=== PATIENT | female | born 1970 | race African-American/Black ===

== ENCOUNTER 2023-04-04 12:18 | Outpatient (CLI) | payer OTHER, SELFPAY ==
--- NOTE | ~2023-04-04 | US_ITS ---
EXAMINATION: US pelvic complete DATE: 04/04/2023 13:16 INDICATION: Missing IUD strings TECHNIQUE: Multiple transabdominal and endovaginal sonographic images of the pelvis were obtained. COMPARISON: 03/09/2017 FINDINGS: The uterus measures 8.4 x 5.0 x 5.8 cm. The endometrial complex measures 7 mm. An IUD is in expected position. A 1.2 cm round hypoechoic lesion of the uterine fundus has the appearance of an i ntramural fibroid. The right ovary measures 3.5 x 1.9 x 2.6 cm. The left ovary measures 2.4 x 1.1 x 2 .5 cm. There is normal vascular flow in the ovaries. There is no free fluid in the pelvis. IMPRESSION: 1. IUD in expected position. Reviewed, dictated and finalized at location [facility] [employer]
== END 2023-04-04 12:19 ==
PROVIDERS: PCP Obstetrics & Gynecology Gynecology; Visit Provider Obstetrics & Gynecology Gynecology
DX: Z97.5 Presence of (intrauterine) contraceptive device (principal)
CPT/HCPCS: 76856

== ENCOUNTER 2023-05-31 08:53 | Outpatient (CLI) | payer OTHER, SELFPAY ==
--- NOTE | ~2023-05-31 | DEXA_ITS ---
Bone Density Report Name: MEENAKSHI FERNÁNDEZ Age: 53 Sex: Female Ethnicity: Black Date of : 1970 Indication: postmenopausal; screening for osteoporosis; height loss; Referring Provider: MEREDITH MACIAS Study: Bone densitometry was performed. Exam Date: May 31, 2023 Accession number: [id number] Bone Density: Region BMD T-score Z-score Classification AP Spine (L1-L4) 1.213 1.5 1.5 Normal Femoral Neck (Left) 0.808 -0.4 -0.4 Normal Total Hip (Left) 0.958 0.1 -0.1 Normal Femoral Neck (Right) 0.733 -1.0 -0.9 Normal Total Hip (Right) 0.960 0.1 -0.1 Normal Total Hip Mean 0.959 0.1 -0.1 Normal World Health Organization criteria for BMD impression classify patients as: Normal (T-score at or above -1.0), Osteopenia (T-score between -1.0 and -2.5), or Osteoporosis (T-score at or below -2.5). 10-year Fracture Risk: FRAX not reported because: All T-scores for Spine Total, Hip Total, Femoral Neck at or above -1.0 Clinical Information Provided by Patient: Has used the following medications: Vitamin D, MTV Patient maximum height was 64 No regular weight bearing exercise Does not regularly consume dairy products Drinks caffeinated beverages Onset of menses at age 12 Number of children 1 Impression: The patient has normal bone mass. Discussion: BONE DENSITY IS ABOVE THE MINIMUM DESIRABLE LEVEL AT ALL SKELETAL SITES TESTED. This patient?s bone mineral density is above the minimum desirable level (T-score -1.0 or better) at all sites measured. The patient should follow a healthful lifestyle (good nutrition with adequate calcium and vitamin D, and appropriate weight-bearing exercise). Follow-Up: Consider repeating this study in 5 years or sooner if there is some new clinical indication. Reported by: HELGA on 05/31/2023 9:18:00 AM. Reviewed, dictated and finalized at location AAysha JACKSON
== END 2023-05-31 08:54 ==
LOC: MICIMG 08:55
PROVIDERS: PCP Obstetrics & Gynecology Gynecology; Visit Provider Obstetrics & Gynecology Gynecology
DX: Z13.820 Encounter for screening for osteoporosis (principal); R29.890 Loss of height; Z78.0 Asymptomatic menopausal state
CPT/HCPCS: 77080

== ENCOUNTER 2024-05-14 01:46 | Day surgery (SDC) | payer OTHER, SELFPAY ==
[2024-05-02 10:13] VITALS: BMI 25.2
--- NOTE | 2024-05-02 11:09 | PC.NURSE ---
Report to the Outpatient Waiting Room, entrance under the green pavilion located off [facility], at time __0615AM on date _05/14/24 . Planned Procedure Time: __0815AM .? Time changes happen often and if your time is changed the preop area will call you the afternoon before. - You and your visitor will be asked to self-screen and do not enter if you have any COVID symptoms. Please call surgeon if you need to reschedule. - A mask is optional within the hospital at this time. Patients may have clear liquids (water, carbonated beverages, clear teas, apple juice) until 3 hours prior to surgery with a maximum of 20 ounces. - No food from midnight until time of surgery and no smoking, or chewing tobacco (or any form of nicotine). No chewing gum, candy or mints. - Take only the following medications with a SIP of water on the morning of surgery: _LAMICTAL, ESCITALOPRAM, ABILIFY DO NOT STOP ANY OF YOUR OTHER PRESCRIPTION MEDICATIONS PRIOR TO SURGERY EXCEPT THE FOLLOWING Hold all vitamins and supplements for 3 days per anesthesiologist. Medications to discontinue per physician ___MOUNJARO LAST DOSE 05/03/24,__ MULTIVITAMIN LAST DOSE 05/11/24 Date to take last dose Please no make-up, nail irish, hairspray, perfume, deodorant, or body powder the day of surgery.? No jewelry (including any body piercings) or valuables the day of surgery, leave them at home.? Please take a shower or bath the night before, or the morning of, surgery with an antibacterial soap.? Wear comfortable, loose fitting clothing.? - Jewelry must be removed prior to entering the operating room.? Rings and piercings that are not removed may be cut off. - The hospital will not accept responsibility for valuables.? - Please leave all valuables, including medications, at home the day of surgery. If you are going home after surgery, a licensed semi driver must drive you home.? - NO public transportation without another adult if you receive anesthesia. - We recommend that an adult stay with you for 24 hours following discharge. - We also recommend that you do not drive, make important decision, drink alcoholic beverages, or take any drugs that were not prescribed by your health care provider for at least 24 hours after your discharge time. Follow any additional instructions given to you from your surgeon. Telephone instructions given to _MEENAKSHI and asked if any additional questions and then verbalized understanding. Patient advised to call surgeon office or pre surgery nurse liaison [phone] if any additional questions.
--- OUTSIDE RECORDS SUMMARY | 2024-05-14 01:49 | XMS_ITS | Clinical Summary ---
Author Organization [facility] Address [address] [place] [address] Care Team Providers Care Parole Officer Name Role Phone Taylor Chen MD Primary Care Provider [phone] Allergies No known active allergies Medications lamoTRIgine 150 MG tabletIndication s:Recurrent major depressive disorder, in full remission (CMS/HCC) TAKE 1 TABLET BY MOUTH TWICE DAILY 60 tablet 11 1 Active spironolactone 100 MG tablet Take 1 tablet (100 mg total) by mouth daily. 2 Active valACYclovir 500 MG tablet Take 1 tablet (500 mg total) by mouth daily. 2 Active escitalopram 20 MG tabletIndication s:Recurrent major depressive disorder, in full remission (CMS/HCC) Take 1 tablet (20 mg total) by mouth daily. 90 tablet 3 2 Active ARIPiprazole (ABILIFY) 10 MG tablet Take 1 tablet (10 mg total) by mouth daily. 2 Active vitamin D2, ergocalciferol, (DRISDOL) 1.25 mg capsuleIndicatio ns:Vitamin D deficiency Take 1 capsule (50,000 Units total) by mouth once a week. 12 capsule 2 3 Active aluminum chloride (DRYSOL) 20 % external solutionIndicati ons:Hyperhidrosi s Apply topically nightly at bedtime. 60 mL 5 3 Active fluticasone propionate (FLONASE) 50 MCG/ACT nasal sprayIndications :Routine general medical examination at a health care facility 2 sprays by Each Nostril route daily. 16 g 11 4 Active tirzepatide (MOUNJARO) 7.5 MG/0.5ML injectionIndicat ions:Diabetes Mellitus Inject 7.5 mg into the skin once a week. Indications: Diabetes 6 mL 1 4 Active Multiple Vitamin (MULTIVITAMIN) TabIndications:E ncounter for general health examination TAKE 1 TABLET BY MOUTH DAILY 30 tablet 11 4 Active Active Problems Problem Noted Date Diagnosed Date Herpes simplex vulvovaginitis 12/04/2018 Fibroadenoma of left breast 05/02/2018 Recurrent major depressive disorder, in full rem ission 05/02/2018 Eczema 11/16/2016 Insomnia 08/31/2016 Backache 06/26/2013 Depression 01/16/2013 Genital warts 08/09/2011 Resolved Problems Problem Noted Date Diagnosed Date Resolved Date Encounter to discuss test results 03/03/2020 02/03/2022 Acne vulgaris 04/10/2019 02/03/2022 Over weight 03/22/2018 02/03/2022 Anxiety 08/09/2011 04/04/2024 Encounters Date Type Department Care Team Description 04/04/2024 2:30 PM LICENSED CLINICAL PSYCHOLOGIST Laboratory Only [facility] Medical [facility] [address] [place] [address] Taylor Chen MD 04/04/2024 2:00 PM LICENSED CLINICAL PSYCHOLOGIST Office Visit [facility] [address] [place] [address] Taylor Chen MD Follow Up ( follow up after having Covid 2 weeks ago) 04/04/2024 Travel 03/22/2024 9:29 AM LICENSED CLINICAL PSYCHOLOGIST - 03/22/2024 10:15 AM LICENSED CLINICAL PSYCHOLOGIST Hospital Encounter [facility] [address] [place] [address] Norma Jones, RUBBER WORKER Confirmed Coronavirus (Covid-19) Discharge Disposition: Home or Self Care (Routine Discharge) 03/22/2024 Travel from Last 3 Months Immunizations Name Administration Dates Next Due MODERNA COVID-19 (12+) MRNA, LNP-S, PF, 100 MCG/ 0.5 ML DOSE 05/08/2020,04/11/2020 Family History Medical History Relation Comments Drug Abuse Brother Diabetes Father Cancer Maternal Grandmother Depression Mother Mental Health Mother Heart Disease Other Relation Status Comments Brother Father Maternal Grandmother Mother Other Other Social History Tobacco Use Types Packs/Day Years Used Date Smoking Tobacco: Former Cigarettes Passive Smoke Exposure: Never Smokeless Tobacco: Never Tobacco Cessation:Counseling Given: No Alcohol Use Standard Drinks/Week Comments Never 0 (1 standard drink = 0.6 oz pur e alcohol) PHQ-2 Answer Date Recorded Patient Health Questionnaire-2 Score 0 12/01/2023 Comments No Sex and Gender Information Value Date Recorded Sex Assigned at Female 04/04/2024 2:18 PM LICENSED CLINICAL PSYCHOLOGIST Legal Sex Female 4:48 PM CDT Gender Identity Female 06/30/2021 9:55 AM CDT Sexual Orientation Straight 06/30/2021 9: 55 AM CDT Last Filed Vital Signs Vital Sign Reading Time Taken Comments Blood Pressure 121/74 04/04/2024 1:35 PM LICENSED CLINICAL PSYCHOLOGIST Pulse 90 04/04/2024 1:35 PM LICENSED CLINICAL PSYCHOLOGIST Temperature 36.7 C (98.1 F) 04/04/2024 1:35 PM LICENSED CLINICAL PSYCHOLOGIST Respiratory Rate 16 04/04/2024 1:35 PM LICENSED CLINICAL PSYCHOLOGIST Oxygen Saturation 99% 04/04/2024 1:35 PM LICENSED CLINICAL PSYCHOLOGIST Inhaled Oxygen Concentration - - Weight 66.2 kg (146 lb) 04/04/2024 1:35 PM LICENSED CLINICAL PSYCHOLOGIST Height 162.6 cm (5' 4 ) 04/04/2024 1:35 PM LICENSED CLINICAL PSYCHOLOGIST Body Mass Index 25.06 04/04/2024 1:35 PM LICENSED CLINICAL PSYCHOLOGIST Plan of Treatment Health Maintenance Due Date Last Done Comments DTaP, Tdap and Td Vaccines (1 - Tdap) 1990 Hepatitis B Vaccines (1 of 3 - 19+ 3-dose series) 1990 Cervical Cancer Screening Pap with HPV Testing (Age 30 to 64) Every 5 Years 2001 Cervical Cancer Screening Pap Smear (Age 30 to 64) Every 3 Years 01/20/2020 01/19/2017 PHQ-2 (Physician [place]) 03/21/2024 12/01/2023 Mammogram Screening 06/12/2024 06/13/2023, 06/13/2023, 06/11/2022, Additional history exists Annual Physical 04/04/2025 04/04/2024, 08/19, 02/04/2020 COVID-19 Vaccine ( season) 2025 05/08/2020, 04/11/2020 Postponed from 11/20/2023 (Patient Refused) Cervical Cancer Screening with HPV 04/04/2025 Postponed from 01/20/2020 (Going to Outside Clinic) Colorectal Cancer Screening Colonoscopy (10 Years) 04/04/2025 Postponed from 1971 (Patient Refused) Influenza Adult (#1) 2025 Postpon ed from 12/20/2023 (Patient Refused) Zoster Vaccines (1 of 2) 04/04/2025 Pos tponed from 2021 (Going to Outside Clinic) Hepatitis C 06/05/2053 Postponed from 1989 (Patient Refused) Colorectal Cancer Screening FIT-DNA (3 Years) Discontinued 02/11/2020, 02/11/2020 Meningococcal B Vaccine Aged Out No l onger eligible based on patient's age to complete this topic Meningococcal Vaccine Aged Out No stephen rema eligible based on patient's age to complete this topic Pneumococcal Vaccine: Pediatrics (0 to 5 Years) and At-Risk Patients (6 to 64 Years) Aged Out No longer eligible based on patient's age to complete this topic RSV Immunizations Under 20 Months Aged Out No longer eligible based on patient's age to complete this topic Procedures Procedure Name Priority Date/Time Associated Diagnosis Comments THYROID STIM HORMONE TSH Routine 025 2:45 PM LICENSED CLINICAL PSYCHOLOGIST VITAMIN D, 25 OH Routine 04/04/2024 2:45 PM LICENSED CLINICAL PSYCHOLOGIST Annual physical exam Vitamin D deficiency VITAMIN B-12 Routine 04/04/2024 2:45 PM LICENSED CLINICAL PSYCHOLOGIST Annual physical exam TRIIODOTHYRONINE TOTAL , TT-3 Routine 04/04/2024 2:45 PM LICENSED CLINICAL PSYCHOLOGIST Annual physical exam THYROXINE, FREE (FT4) Routine 04/04/2024 2:45 PM LICENSED CLINICAL PSYCHOLOGIST Annual physical exam LIPID PANEL Routine 04/04/2024 2:45 PM LICENSED CLINICAL PSYCHOLOGIST Annual physical exam HEMOGLOBIN, GLYCOSYLATED Routine 025 2:45 PM LICENSED CLINICAL PSYCHOLOGIST Annual physical exam FOLIC ACID SERUM Routine 04/04/2024 2:45 PM LICENSED CLINICAL PSYCHOLOGIST Annual physical exam COMPREHENSIVE METABOLIC PANEL Routine 04/04/2024 2:45 PM LICENSED CLINICAL PSYCHOLOGIST Annual physical exam CBC W/DIFF AUTOMATED Routine 04/04/2024 2:45 PM LICENSED CLINICAL PSYCHOLOGIST Annual physical exam COLLECTION VENOUS BLOOD VENIPUNCTURE Routine 04/04/2024 2:38 PM LICENSED CLINICAL PSYCHOLOGIST Annual physical exam CORONAVIRUS (COVID 19) STAT 9:44 AM LICENSED CLINICAL PSYCHOLOGIST MAMMOGRAM GENERIC (SCAN ORDER) 06/13/2023 COLOGUARD (SCAN ORDER) Routine 02/11/2020 CYTOPATH CERV/VAG THIN LAYER Routine 01/19/2017 12:00 AM CDT from Last 3 Months or Most Recently Relevant to Health Maintenance Results * HEMOGLOBIN, GLYCOSYLATED (04/04/2024 2:45 PM LICENSED CLINICAL PSYCHOLOGIST) HGB A1C 5.1 <5.7 % of total Hgb [facility] Comment: For the purpose of screening for the presence of diabetes: <5.7% Consistent with the absence of diabetes 5.7-6.4% Consistent with increased risk for diabetes (prediabetes) > or =6.5% Consistent with diabetes This assay result is consistent with a decreased risk of diabetes. Currently, no consensus exists regarding use of hemoglobin A1c for diagnosis of diabetes in children. According to [place] Diabetes Association (ADA) guidelines, hemoglobin A1c <7.0% represents optimal control in non- diabetic patients. Different metrics may apply to specific patient populations. Standards of Medical Care in Diabetes(ADA). 04/04/2024 2:45 PM LICENSED CLINICAL PSYCHOLOGIST 04/05/2024 4:23 AM LICENSED CLINICAL PSYCHOLOGIST Narrative Resulting Agency Comment Performing Organization Information: Site ID: [id number] Name: [facility] Address: [address] [place] [phone] Director: Adrianna Javier MD Taylor Chen MD LABORATORY Final Result [facility] [id number] [place] [address], * VITAMIN B-12 (04/04/2024 2:45 PM LICENSED CLINICAL PSYCHOLOGIST) VITAMIN B12 S/P/B 482 200 - 1,100 pg/mL [facility] 04/04/2024 2:45 PM LICENSED CLINICAL PSYCHOLOGIST 04/05/2024 4:23 AM LICENSED CLINICAL PSYCHOLOGIST Narrative Resulting Agency Comment Performing Organization Information: Site ID: [id number] Name: [facility] Address: [address] [place] [phone] Director: Adrianna Javier MD Taylor Chen MD LABORATORY Final Result Performing Organization Address City/[facility]/ZIP Co de Phone Number [facility] [address] [address], * TRIIODOTHYRONINE TOTAL , TT-3 (04/04/2024 2:45 PM LICENSED CLINICAL PSYCHOLOGIST) T3 TOTAL 90 76 - 181 ng/dL [facility] 04/04/2024 2:45 PM LICENSED CLINICAL PSYCHOLOGIST 04/05/2024 4:23 AM LICENSED CLINICAL PSYCHOLOGIST Narrative Resulting Agency Comment Performing Organization Information: Site ID: [id number] Name: [facility] Address: [address] [place] [phone] Director: Adrianna Javier MD Taylor Chen MD LABORATORY Final Result Performing Organization Address City/[facility]/ZIP Co de Phone Number [facility] [address] [address], * COMPREHENSIVE METABOLIC PANEL (04/04/2024 2:45 PM LICENSED CLINICAL PSYCHOLOGIST) GLUCOSE 69 65 - 99 mg/dL [facility] Comment: Fasting reference interval BUN 10 7 - 25 mg/dL [facility] CREATININE S/P/B 0.81 0.50 - 1.03 mg/dL [facility] GFR ESTIMATE 87 > OR = 60 mL/min/1. 73m2 [facility] BUN CREATININE RATIO SEE NOTE: 6 - 22 (calc) [facility] Comment: Not Reported: BUN and Creatinine are within reference range. SODIUM S/P/B 139 135 - 146 mmol/L [facility] Comment: Verified by repeat analysis. POTASSIUM S/P/B 4.2 3.5 - 5.3 mmol/L [facility] CHLORIDE S/P/B 105 98 - 110 mmol/L [facility] Comment: Verified by repeat analysis. CO2 31 20 - 32 mmol/L [facility] Comment: Verified by repeat analysis. CALCIUM S/P/B 9.5 8.6 - 10.4 mg/dL [facility] TOTAL PROTEIN S/P/B 7.2 6.1 - 8.1 g/dL [facility] ALBUMIN S/P/B 4.2 3.6 - 5.1 g/dL [facility] GLOBULIN 3.0 1.9 - 3.7 g/dL (calc) [facility] ALBUMIN/GLOBULI N RATIO 1.4 1.0 - 2.5 (calc) [facility] BILIRUBIN TOTAL S/P/B 0.2 0.2 - 1.2 mg/dL [facility] ALKALINE PHOSPHATASE S/P/B 45 37 - 153 U/L [facility] AST 13 10 - 35 U/L [facility] ALT 19 6 - 29 U/L [facility] 04/04/2024 2:45 PM LICENSED CLINICAL PSYCHOLOGIST 04/05/2024 4:23 AM LICENSED CLINICAL PSYCHOLOGIST Narrative Resulting Agency Comment Performing Organization Information: Site ID: [place] Name: [facility] Address: [address] [address] Director: Adrianna Javier MD Taylor Chen MD LABORATORY Final Result RADHA ALFARO [facility] [address] [place] [address], * LIPID PANEL (04/04/2024 2:45 PM LICENSED CLINICAL PSYCHOLOGIST) CHOLESTEROL 171 <200 mg/dL [facility] HDL 56 > OR = 50 mg/dL [facility] TRIGLYCERIDES 111 <150 mg/dL [facility] LDL (CALCULATED) 94 mg/dL (calc) [facility] Comment: Reference range: <100 Desirable range <100 mg/dL for primary prevention; <70 mg/dL for patients with CHD or diabetic patients with > or = 2 CHD risk factors. LDL-C is now calculated using the Gwyn calculation, which is a validated novel method providing better accuracy than the Friedewald equation in the estimation of LDL-C. Derrick RAMON et al. CHRISTIANO. 2013;310(19): 4980-4322 (http://education.SemiLev/faq/RCS498) CHOL/HDL RATIO 3.1 <5.0 (calc) [facility] NON HDL CHOLESTEROL 115 <130 mg/dL (calc) [facility] Comment: For patients with diabetes plus 1 major ASCVD risk factor, treating to a non-HDL-C goal of <100 mg/dL (LDL-C of <70 mg/dL) is considered a therapeutic option. 04/04/2024 2:45 PM LICENSED CLINICAL PSYCHOLOGIST 04/05/2024 4:23 AM LICENSED CLINICAL PSYCHOLOGIST Narrative Resulting Agency Comment Performing Organization Information: Site ID: [place] Name: Rad[facility] Vasquez Address: [place] [address] Director: Adrianna Javier MD Taylor Chen MD LABORATORY Final Result [facility] ALF[facility] [address], * FOLIC ACID SERUM (04/04/2024 2:45 PM LICENSED CLINICAL PSYCHOLOGIST) [facility] FOLATE 13.7 ng/mL [facility] Comment: Reference Range Low: <3.4 Borderline: 3.4-5.4 Normal: >5.4 04/04/2024 2:45 PM LICENSED CLINICAL PSYCHOLOGIST 04/05/2024 4:23 AM LICENSED CLINICAL PSYCHOLOGIST Narrative Resulting Agency Comment Performing Organization Information: Site ID: [id number] Name: [facility] Address: [address] [place] [phone] Director: Adrianna Javier MD Taylor Chen MD LABORATORY Final Result Performing Organization Address City/[facility] Co de Phone Number [facility] [place] [facility] [address] [address], [place] * CBC W/DIFF AUTOMATED (04/04/2024 2:45 PM LICENSED CLINICAL PSYCHOLOGIST) WBC TNP Thousand/u L [facility] Comment: TEST NOT PERFORMED Specimen received clotted. 04/04/2024 2:45 PM LICENSED CLINICAL PSYCHOLOGIST 04/05/2024 4:23 AM LICENSED CLINICAL PSYCHOLOGIST Narrative Resulting Agency Comment Performing Organization Information: Site ID: [id number] Name: [facility] Address: [address] [place] [phone] Director: Adrianna Javier MD Taylor Chen MD LABORATORY Final Result Performing Organization Address [facility] de Phone Number [facility] [employer] [address] [address], [place] * THYROXINE, FREE (FT4) (04/04/2024 2:45 PM LICENSED CLINICAL PSYCHOLOGIST) FREE T4 0.9 0.8 - 1.8 ng/dL [facility] 04/04/2024 2:45 PM LICENSED CLINICAL PSYCHOLOGIST 04/05/2024 4:23 AM LICENSED CLINICAL PSYCHOLOGIST Narrative Resulting Agency Comment Performing Organization Information: Site ID: [id number] Name: [facility] Address: [address] [place] [phone] Director: Adrianna Javier MD Taylor Chen MD LABORATORY Final Result Performing Organization Address [facility] Co de Phone Number [facility] DAYNA ALFARO [facility] [address] [facility] [place] [address], * THYROID STIM HORMONE TSH (04/04/2024 2:45 PM LICENSED CLINICAL PSYCHOLOGIST) TSH 0.76 mIU/L [facility] Comment: Reference Range > or = 20 Years 0.40-4.50 Ranges First trimester 0.26-2.66 Second trimester 0.55-2.73 Third trimester 0.43-2.91 04/04/2024 2:45 PM LICENSED CLINICAL PSYCHOLOGIST 04/05/2024 4:23 AM LICENSED CLINICAL PSYCHOLOGIST Narrative Resulting Agency Comment Performing Organization Information: Site ID: [id number] Name: [facility] Address: [address] [place] [phone] Director: Adrianna Javier MD Taylor Chen MD LABORATORY Final Result Performing Organization Address [facility] de Phone Number [facility] DAYNA ALFARO [facility]NA [facility] [id number] [place] [address], * VITAMIN D, 25 OH (04/04/2024 2:45 PM LICENSED CLINICAL PSYCHOLOGIST) Pathologist [facility] VITAMIN D 25 HYDROXY TOTAL S/P/B 53.4 >29.9 ng/mL [facility] Comment: This test was developed and its analytical performance characteristics have been determined by [facility]. It has not been cleared or approved by the U.S. Food and Drug Administration. This assay has been validated pursuant to the CLIA regulations and is used for clinical purposes. Vitamin D, 25-Hydroxy reports concentrations of two common forms, 25-OHD2 and 25-OHD3. 25-OHD3 indicates both endogenous production and supplementation. 25-OHD2 is an indicator of exogenous sources, such as diet or supplementation. Therapy is based on measurement of Total 25-OHD, with levels <20 ng/mL indicative of Vitamin D deficiency, while levels between 20 ng/mL and 30 ng/mL suggest insufficiency. Optimal levels are >=30 ng/mL. Vitamin D, 25-Hydroxy reports concentrations of two common forms, 25-OHD2 and 25-OHD3. 25-OHD3 indicates both endogenous production and supplementation. 25-OHD2 is an indicator of exogenous sources, such as diet or supplementation. Therapy is based on measurement of Total 25-OHD, with levels <20 ng/mL indicative of Vitamin D deficiency, while levels between 20 ng/mL and 30 ng/mL suggest insufficiency. Optimal levels are > or = 30 ng/mL. VITAMIN D 25 HYDROXY D3 S/P/B 7.5 ng/mL [facility] Comment: This test was developed and its analytical performance characteristics have been determined by [facility]. It has not been cleared or approved by the FDA. This assay has been validated pursuant to the CLIA regulations and is used for clinical purposes. VITAMIN D 25 HYDROXY D2 S/P/B 45.9 ng/mL [facility] Comment: This test was developed and its analytical performance characteristics have been determined by [facility]. It has not been cleared or approved by the FDA. This assay has been validated pursuant to the CLIA regulations and is used for clinical purposes. 04/04/2024 2:45 PM LICENSED CLINICAL PSYCHOLOGIST 04/05/2024 4:23 AM LICENSED CLINICAL PSYCHOLOGIST Narrative Resulting Agency Comment Performing Organization Information: Site ID: [id number] Name: [facility] Address: [address] [place] [address], [address] [address] Director: Kwan España PhD,[facility] Taylor Chen MD LABORATORY Final Result [facility] [place] [facility] [facility] [address] [place] [address], [address] [place], [place] [address] [place] * (ABNORMAL) CORONAVIRUS (COVID 19) (03/22/2024 9:44 AM LICENSED CLINICAL PSYCHOLOGIST) CORONAVIRUS SARS COV 2 RNA POSITIVE( AA) NEGATIVE 03/22/2024 9:55 AM LICENSED CLINICAL PSYCHOLOGIST [facility] Comment: THE ID NOW COVID-19 2.0 TEST HAS BEEN AUTHORIZED BY THE FDA UNDER EAU FOR USE BY AUTHORIZED LABORATORIES. PERFORMED BY NUCLEIC ACID AMPLIFICATION FOR MOLECULAR QUALITATIVE DETECTION OF SARS-COV-2. Successful Call: [email or web address] called 03/22/2024 09:55 AM to NORMA JONES FNP ( /NORMA JONES FNP) by [id number]. SPECIMEN TYPE NASAL 03/22/2024 9:44 AM LICENSED CLINICAL PSYCHOLOGIST [facility] CONVENIENT CARE NASAL STRUCTURE / Unknown 03/22/2024 9:44 AM LICENSED CLINICAL PSYCHOLOGIST us Norma BERUMEN MICROBIOLOGY - GENERAL SHIKHA WATKINS Final Result Performing Organization Address City/[facility]/ZIP Co de Phone Number [facility] [place] [address], * MAMMOGRAM GENERIC (SCAN ORDER) (06/13/2023) Anatomical Region Laterality Modality Other 06/13/2023 us [facility] Scanned SCANNING Final Resu lt * COLOGUARD (SCAN) (02/11/2020) COLOGUARD NEGATIVE [facility] Stool specimen (specimen) 02/11/2020 us Documents Scanned SCANNING Final Result Performing Organization Address City/[facility]/ZIP Co de Phone Number [facility] * Cytopath Cerv/Vag Thin Layer (01/19/2017 12:00 AM CDT) PAP SMEAR normal [facility] T O EPIC CONVERSION 01/19/2017 01/19/2017 us Generic Conversion Md [facility] PATHOLOGY/CYTOLOGY ORDE RABTRISH Final Result [facility] TO EPIC CONVERSION from Last 3 Months or Most Recently Relevant to Health Maintenance Insurance [facility] Care Teams Parole Officer Relationship Specialty Start Date End Date Taylor Chen MD [address] [facility] [address] [place], [place] [phone] PCP - General 06/08/12
--- OUTSIDE RECORDS SUMMARY | 2024-05-14 01:49 | XMS_ITS | Clinical Summary ---
Author Organization [facility] Address [address] [place] [address] Care Team Providers Care Hub Borer Name Role Phone Unavailable Primary Care Provider Unavailabl e Source Comments [facility],non-owned Affiliates and Associated Physician Practices is amultiple site organization consisting of ambulatory clinics and hospital sitesin [place], [place], [place] and [place]. This disclosure is being madepursuant to the Care Everywhere program and may not contain all information available regarding this patient. Last updated 17.[facility] Responsa Allergies No known active allergies Social History Tobacco Use Types Packs/Day Years Used Date Smoking Tobacco: Never Assessed Sex and Gender Information Value Date Recorded Sex Assigned at Not on file Gender Identity Not on file Sexual Orientation Not on file Plan of Treatment Health Maintenance Due Date Last Done Comments COLOGUARD (AGES 45-75) - COL ON CA SCREENING 1971 COLON MONITORING 1971 COLONOSCOPY - COLON CA SCREENING 1971 CT COLONOGRAPHY - COLON CA SCREENING 1971 Colorectal Cancer Screening 1971 FIT - COLON CA SCREENING 1971 FLEX SIG - COLON CA SCREENING 1971 LIPID TESTING 1971 MAMMOGRAM 1971 PAP SMEAR 1971 HIV SCREENING 1986 HEPATITIS C SCREENING 04/01/1989 DTAP/TDAP/TD VACCINES (1 - Tdap) 1990 HEPATITIS B VACCINE (1 of 3 - 19+ 3-dose series) 1990 PNEUMOCOCCAL VACCINE 50+ (1 of 1 - PCV) 2021 ZOSTER VACCINE (1 of 2) 2021 COVID-19 VACCINE (1 - 2023-2 5 season) 2023 INFLUENZA VACCINE (#1) 2023 DEPRESSION SCREENING 03/21/2024 HIB VACCINE Aged Out No longer eligi ble based on patient's age to complete this topic HPV VACCINE Aged Out No longer eligi ble based on patient's age to complete this topic MENINGOCOCCAL (Group B) VACCINE Aged Out No longer eligible based on patient's age to complete this topic MENINGOCOCCAL VACCINE Aged Out No stephen rema eligible based on patient's age to complete this topic PNEUMOCOCCAL VACCINE Aged Out No long er eligible based on patient's age to complete this topic Advance Directives Documents on File Type Date Recorded Patient 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
--- OUTSIDE RECORDS SUMMARY | 2024-05-14 01:49 | XMS_ITS | Clinical Summary ---
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 Gender Identity Not on file Sexual Orientation Not on file Plan of Treatment Health Maintenance Due Date Last Done Comments Hepatitis C Virus (HCV) Screening 1971 TdaP Immunization 1971 Hepatitis B Immunization (1 of 3 - 19+ 3-dose series) 1990 Pap Smear 1992 Cervical Cancer Screening (CCS) 2001 HPV/Cotest 2001 Colonoscopy 2016 Colorectal Cancer Screening 2016 Cologuard 2021 Immunochemical Fecal Occult Blood 2021 Mammogram 2021 Pneumococcal Immunization (5 0+ years) (1 of 1 - PCV) 2021 Zoster Immunization (1 of 2) 2021 Influenza Immunization (#1) 2023 SARS-COV-2 Immunization ( - season) 2023 Respiratory Syncytial Virus (RSV) Immunization (Adult) (1 - 1-dose 75+ series) 2046 Meningococcal Immunization (ACWY) Aged Out No longer eligible based on patient's age to complete this topic Pneumococcal Immunization Combined Aged Out No longer eligible based on patient's age to complete this topic Rotavirus Immunization Aged Out No lo nger eligible based on patient's age to complete this topic
--- OUTSIDE RECORDS SUMMARY | 2024-05-14 01:49 | XMS_ITS | Clinical Summary ---
Author Organization [facility] Address [address] [place] [address] Care Team Providers Care Senior Software Test Engineer Name Role Phone Taylor Chen MD Primary Care Provider [phone] Allergies No known active allergies Medications lamoTRIgine (LaMICtal) 150 mg tablet TK 1 T PO BID--for mood 1 12/17/2017 Active phentermine 37.5 mg capsule TK ONE C PO QAM BEFORE BREAKFAST--f or weight lose 0 01/04/2018 Active escitalopram (LEXAPRO) 10 mg tabletIndicatio ns:Anxiety with Depression Take 10 mg by mouth every morning. 5 02/20/2018 Active ARIPiprazole (ABILIFY) 10 mg tablet TK 1 T PO every morning 3 02/14/2018 Active ergocalciferol (VITAMIN D) 50,000 unit capsule TK ONE C PO Q WEEK--saturd ay 4 04/11/2018 Active topiramate (TOPAMAX) 100 mg tablet Take 100 mg by mouth every morning. 04/14/2018 Active oxyCODONE-aceta minophen (PERCOCET) 5-325 mg per tabletIndicatio ns:Pain Take 1 tablet by mouth every 4 (four) hours as needed for pain. 15 tablet 05/15/2018 Active Active Problems Problem Noted Date Diagnosed Date Abnormal mammogram 03/02/2018 Surgical History Surgery Date Site/Laterality Comments SECTION 03/21/1991 - 03/20/1992 BREAST BIOPSY 03/27/2018 Left CERVICAL BIOPSY W/ LOOP ELEC TRODE EXCISION Medical History Medical History Date Comments Depression Overweight History of LEEP (loop electr osurgical excision procedure) of cervix complicating Breast CA (HCC) left Family History Medical History Relation Name Comments Breast cancer Maternal Grandmother ? 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 Gender Identity Not on file Sexual Orientation Not on file Obstetrics History Last Filed Vital Signs Vital Sign Reading Time Taken Comments Blood Pressure 118/75 05/05/2018 11:11 AM DINING SERVICE SUPERVISOR Pulse 84 05/05/2018 11:11 AM DINING SERVICE SUPERVISOR Temperature 36.4 C (97.5 F) 05/05/2018 11:11 AM DINING SERVICE SUPERVISOR Respiratory Rate 16 05/05/2018 11:11 AM DINING SERVICE SUPERVISOR Oxygen Saturation 95% 05/05/2018 11:11 AM DINING SERVICE SUPERVISOR Inhaled Oxygen Concentration - - Weight 73.9 kg (163 lb) 05/02/2018 9:50 AM DINING SERVICE SUPERVISOR Height 165.1 cm (5' 5 ) 05/02/2018 9:50 AM DINING SERVICE SUPERVISOR Body Mass Index 27.12 05/02/2018 9:50 AM DINING SERVICE SUPERVISOR Plan of Treatment Health Maintenance Due Date Last Done Comments Cervical Cancer Screening 1971 Colon Cancer Screening-Colonoscopy 1971 Depression Screening 1971 Hepatitis C Screening 1971 DTaP/Tdap/Td Vaccine (1 - Tdap) 1982 Hepatitis B Screening 1989 Regular Well Visit/Exam 18-64 1989 Zoster Vaccine (1 of 2) 2021 Covid-19 Vaccine (3 - 2023- season) 2023 05/08/2020, 04/11/2020 Influenza Vaccine (#1) 2023 Breast Cancer Screening-Mammogram 06/12/2024 06/13/2023, 06/11/2022, 05/11/2021, Additional history exists Pneumococcal vaccine <65 Aged Out No longer eligible based on patient's age to complete this topic Procedures Procedure Name Priority Date/Time Associated Diagnosis Comments SCREENING MAMMOGRAM BILATERAL W AL[place]AS Schedule Routine, Read Routine (OP Routine) 06/13/2023 9:48 AM CDT Screening mammogram, encounter for from Last 3 Months or Most Recently Relevant to Health Maintenance Results * Screening Mammogram Bilateral W [place] (06/13/2023 9:48 AM CDT) Anatomical Region Laterality Modality Breast Bilateral Mammography Narrative 06/14/2023 10:14 AM CDT Mammogram Technique: Bilateral Digital Breast Tomosynthesis, Bilateral C-view 2D Screening mammogram. Views obtained: bilateral craniocaudal and bilateral mediolateral oblique. Computer Aided Detection was performed. Mammogram Findings: The present examination has been compared to prior imaging studies performed at [facility] on 04/07/2020, 05/11/2021 and 06/11/2022. The breasts are heterogeneously dense, which may obscure small masses. There is no suspicious abnormality in either breast. There are no significant changes from the prior study. Impression: Findings in both breasts are benign. Annual screening mammography is recommended. If supplemental screening is desired, breast MRI would be recommended in this patient with heterogeneously dense breasts. OVERALL FINAL ASSESSMENT: BI-RADS CATEGORY 2: Benign. Procedure Note Juani Ferreira MD - 06/14/2023 Mammogram Technique: Bilateral Digital Breast Tomosynthesis, Bilateral C-view 2D Screening mammogram. Views obtained: bilateral craniocaudal and bilateral mediolateral oblique. Computer Aided Detection was performed. Mammogram Findings: The present examination has been compared to prior imaging studies performed at [facility] on 04/07/2020, 05/11/2021 and 06/11/2022. The breasts are heterogeneously dense, which may obscure small masses. There is no suspicious abnormality in either breast. There are no significant changes from the prior study. Impression: Findings in both breasts are benign. Annual screening mammography is recommended. If supplemental screeningis desired, breast MRI would be recommended in this patient with heterogeneously dense breasts. OVERALL FINAL ASSESSMENT: BI-RADS CATEGORY 2: Benign. us Self Screening Mammogram IMG MAMMO PROCEDURES Fi nal Result from Last 3 Months or Most Recently Relevant to Health Maintenance Insurance [facility] Care Teams Senior Software Test Engineer Relationship Specialty Start Date End Date Taylor Chen MD [address] [place] [address] PCP - General Sports Medicine 03/02/18
--- OUTSIDE RECORDS SUMMARY | 2024-05-14 01:49 | XMS_ITS | Patient Health Summary ---
Author Organization [facility] Address [address] [place] [address] Care Team Providers Care Press Feeder Name Role Phone Unavailable Primary Care Provider Unavailabl e Note from [facility],non-owned Affiliates and Associated Physician Practices is amultiple site organization consisting of ambulatory clinics and hospital sitesin [place], [place], [place] and [place]. This disclosure is being madepursuant to the Care Everywhere program and may not contain all information available regarding this patient. Last updated 17.[facility] Allergies No known active allergies Social History Tobacco Use Types Packs/Day Years Used Date Smoking Tobacco: Never Assessed Sex and Gender Information Value Date Recorded Sex Assigned at Not on file Gender Identity Not on file Sexual Orientation Not on file
--- OUTSIDE RECORDS SUMMARY | 2024-05-14 01:49 | XMS_ITS | Referral Summary ---
Author Organization [facility] Address [address] [place] [address] Care Team Providers Care Housing Inspectors Name Role Phone Taylor Chen MD Primary Care Provider [phone] Allergies No known active allergies Medications lamoTRIgine [...] Noted Date Diagnosed Date Abnormal mammogram 03/02/2018 Social History Tobacco Use Types Packs/Day Years Used Date Smoking Tobacco: Former Cigarettes S tarted: 2017 Smokeless Tobacco: Never Comments:smokes 1 cigarete e very other day Alcohol Use Standard Drinks/Week Comments No 0 (1 standard drink = 0.6 oz pur e alcohol) Comments No Sex and Gender Information Value Date Recorded Sex Assigned at Not on file Legal Sex Female 10:01 PM MICROCOMPUTER TECHNICIAN Gender Identity Not on file Sexual Orientation Not on file Last Filed Vital Signs Vital Sign Reading Time Taken Comments Blood Pressure 118/75 05/05/2018 11:11 AM MICROCOMPUTER TECHNICIAN Pulse 84 05/05/2018 11:11 AM MICROCOMPUTER TECHNICIAN Temperature 36.4 C (97.5 F) 05/05/2018 11:11 AM MICROCOMPUTER TECHNICIAN Respiratory Rate 16 05/05/2018 11:11 AM MICROCOMPUTER TECHNICIAN Oxygen Saturation 95% 05/05/2018 11:11 AM MICROCOMPUTER TECHNICIAN Inhaled Oxygen Concentration - - Weight 73.9 kg (163 lb) 05/02/2018 9:50 AM MICROCOMPUTER TECHNICIAN Height 165.1 cm (5' 5 ) 05/02/2018 9:50 AM MICROCOMPUTER TECHNICIAN Body Mass Index 27.12 05/02/2018 9:50 AM MICROCOMPUTER TECHNICIAN Plan of Treatment Not on file Procedures Procedure Name Priority Date/Time Associated Diagnosis [...] compared to prior imaging studies performed at [facility] on 04/07/2020, 05/11/2021 and 06/11/2022. The [...] compared to prior imaging studies performed at [facility] on 04/07/2020, 05/11/2021 and 06/11/2022. The [...] Most Recently Relevant to Health Maintenance Insurance [facility] CHO[facility] PLUS [facility] PLUS [place] [id number] Care Teams Housing Inspectors Relationship Specialty Start Date End Date Taylor Chen MD [address] [id number] PCP - General Sports Medicine 03/02/18
--- OUTSIDE RECORDS SUMMARY | 2024-05-14 01:49 | XMS_ITS | Referral Summary ---
Author Organization [facility] Address [address] [place] [address] Care Team Providers Care Home Staging Specialist Name Role Phone Unavailable Primary Care Provider Unavailabl e Source Comments [facility],non-owned Affiliates and Associated Physician Practices is amultiple site organization consisting of ambulatory clinics and hospital sitesin [place], [place], [place] and [place]. This disclosure is being madepursuant to the Care Everywhere program and may not contain all information available regarding this patient. 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
--- NOTE | 2024-05-14 07:17 | P.HP_ITS ---
History of Present Illness History of Present Illness Consent: Risks, benefits, and alternatives have been discussed and questions answered. Patient agrees to proceed with procedure. Chief complaint: missing iud string Narrative: Betsy Ro is a 54 year old female postmenopausal bleeding. Patient does have an IUD in place but has not had bleeding for several years. It was recommended to undergo D&C hysteroscopy and will present to remove the IUD which has strings missing. Risks of infection, bleeding, perforation, and possible pathology are reviewed. Patient voices understanding and agrees to proceed. 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 History of History of loop electrical excision procedure (LEEP) Social History Social History Smoking packs per day: 0.25 Smoking cigarettes per day: 5.0 Years smoked: 1 Smoking pack-years: 0.25 Smoking status: Former smoker Tobacco type: cigarettes Smoking end date: 03/21/19 Alcohol intake: never Living arrangements: with family Spiritual care concerns: No Meds Home Medications and Allergies Home Medications ?Medication ?Instructions ?Recorded ?Confirmed ?Type aripiprazole 10 mg tablet 10 mg PO DAILY 05/02/24 05/02/24 History betamethasone, augmented 0.05 % 1 applic topical Q24H 05/02/24 05/02/24 History lotion ergocalciferol (vitamin D2) 1,250 1,250 mcg PO .COMPLEX 05/02/24 05/02/24 History mcg (50,000 unit) capsule escitalopram oxalate 20 mg tablet 20 mg PO DAILY 05/02/24 05/02/24 History lamotrigine 150 mg tablet 150 mg PO BID 05/02/24 05/02/24 History multivitamin 1 tablet PO DAILY 05/02/24 05/02/24 History solifenacin 5 mg tablet 5 mg PO DAILY 05/02/24 05/02/24 History spironolactone 100 mg tablet 100 mg PO DAILY 05/02/24 05/02/24 History tirzepatide 7.5 mg/0.5 mL 7.5 mg subcut WEEKLY WEIGHT LOSS 05/02/24 05/02/24 History subcutaneous pen injector (Joce) valacyclovir 500 mg tablet 500 mg PO DAILY 05/02/24 05/02/24 History Exam Const: General: healthy appearing and alert Orientation/consciousness: patient oriented x3 Resp: Effort & Inspection: normal respiratory effort GI: GI Palp: Yes Soft to palpation, No Tenderness to palpation present (GI) and No Palpable mass present : External Female Exam: normal external appearance Speculum Exam - Vagina: normal appearance of the vagina and normal vaginal discharge Speculum Exam - Cervix: normal appearance of the cervix Bimanual exam- vagina & uterus: uterine size normal and consistency normal Bimanual Exam- Adnexa, other: normal adnexae and No adnexal tenderness Neuro: General: patient oriented x3 Assessment and Plan Assessment and plan (1) Post-menopausal bleeding: Code(s): N95.0 - Postmenopausal bleeding Status: Acute Assessment and Plan: Plan to proceed with hysteroscopy D&C and removal of IUD
--- NOTE | 2024-05-14 07:17 | WPDHPUPDATE1 ---
History and Physical Update Update Date/Time: 05/14/24 07:17 History and Physical has been reviewed, including an updated exam of the patient. There are NO changes in the patient's condition. Risks, benefits, and alternatives have been discussed and questions answered. Patient agrees to proceed with procedure.
[2024-05-14 08:00] VITALS: BP 102/69; PULSE 83; RESP 16; TEMP 36.5; O2SAT 100; BMI 24.8
[2024-05-14] MEDS: ACETAMINOPHEN 500 MG TABLET 1000 MG PO (08:44)
--- NOTE | 2024-05-14 08:57 | WPDANESEPPF ---
Anes - Initial Pre Proc Eval Procedure: Operation Date: 05/14/24 09:45 Proposed Procedures p Hysteroscopy Dilation and Curettage with Intrauterine Device Removal - Lyudmila Raltiff MD Date/Time: 05/14/24 08:57 Surgeon: Lyudmila Ratliff MD Pre Op Diagnosis: missing iud string Patient Data Age: 54 Gender: F Height: 1.63 m Weight: 66.6 kg Allergies Allergy/AdvReac Type Severity Reaction Status Date / Time No Known Allergies Allergy Verified 05/14/24 08:24 Home Medications ?Medication ?Instructions ?Recorded ?Confirmed ?Type aripiprazole 10 mg tablet 10 mg PO DAILY 05/02/24 05/02/24 History betamethasone, augmented 0.05 % 1 applic topical Q24H 05/02/24 05/02/24 History lotion ergocalciferol (vitamin D2) 1,250 1,250 mcg PO .COMPLEX 05/02/24 05/02/24 History mcg (50,000 unit) capsule escitalopram oxalate 20 mg tablet 20 mg PO DAILY 05/02/24 05/02/24 History lamotrigine 150 mg tablet 150 mg PO BID 05/02/24 05/02/24 History multivitamin 1 tablet PO DAILY 05/02/24 05/02/24 History solifenacin 5 mg tablet 5 mg PO DAILY 05/02/24 05/02/24 History spironolactone 100 mg tablet 100 mg PO DAILY 05/02/24 05/02/24 History tirzepatide 7.5 mg/0.5 mL 7.5 mg subcut WEEKLY WEIGHT LOSS 05/02/24 05/02/24 History subcutaneous pen injector (Mounjaro) valacyclovir 500 mg tablet 500 mg PO DAILY 05/02/24 05/02/24 History Patient hx anesthesia problems: none Family hx anesthesia problems: none Results Review: All pre-operative results and documents have been reviewed as part of the pre-operative evaluation. 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 History of History of loop electrical excision procedure (LEEP) Social History Social History Smoking packs per day: 0.25 Smoking cigarettes per day: 5.0 Years smoked: 1 Smoking pack-years: 0.25 Smoking status: Former smoker Tobacco type: cigarettes Smoking end date: 03/21/19 Alcohol intake: never Living arrangements: with family Spiritual care concerns: No Anes - Eval Final PreProcedure Day of Procedure 05/14/24 08:57 Patient weight: normal Heart: regular rate and rhythm Lungs: clear to auscultation Airway: Mallampati scale class II Neurological: alert and oriented Last oral intake: >/= 8 hours ASA classification: II Emergent: no Anesthetic plan: proceed Anesthesia type and monitoring: general GIVS and standard monitoring Results Review: All pre-operative results and documents have been reviewed as part of the pre-operative evaluation. Informed Consent: The patient's anesthetic plan and its attendant risks and benefits were discussed with the patient/family/POA. Questions were solicited and answers provided to the satisfaction of the patient/family/POA.
--- NOTE | 2024-05-14 09:22 | P.OP_ITS ---
Procedure Note - Detailed Date of Procedure 05/14/24 Pre-op Diagnosis Postmenopausal bleeding; missing iud strings Post-op Diagnosis Same Procedure Performed D&C hysteroscopy hysteroscopic removal of IUD Surgeon Lyudmila Ratliff MD Anesthesia MAC Findings IUD in proper position with strings pointing upward. Normal-appearing endometrium. Description of Procedure The patient was taken to the operating room and placed under anesthesia in the dorsal lithotomy position. She was prepped and draped in the usual sterile fashion. [place] speculum was placed in the vagina and the cervix was grasped on the anterior lip with a tenaculum. Uterus was sounded to 8cm. The hysteroscope was placed and the IUD strings are pointing upward and the body of the IUD is in the proper position. The graspers were placed through the hysteroscope and the strings are grasped and the IUD removed with the hysteroscope. The hysteroscope was replaced and endometrium inspected. With no abnormalities noted it is removed. The sharp curette is used to curette the endometrium until a good uterine cry was noted in all areas. All instruments are removed. Sponge, needle, and instrument counts are correct per the OR staff. Patient was awakened from anesthesia and taken to recovery in stable condition. Estimated Blood Loss 5 Drains No Packing No Pathology Yes ( Endometrial curettings) Complications No immediate complications Condition Stable Disposition PACU
[2024-05-14 09:25] VITALS: BP 96/66; PULSE 79; RESP 16; O2SAT 98
[2024-05-14] MEDS: LACTATED RINGERS 1,000 ML 30 ML IV CONT (09:25)
[2024-05-14 09:35] LABS: BEDSIDEPREGUCG Negative (Negative)
[2024-05-14 09:55] VITALS: BP 107/58; PULSE 73; RESP 14
[2024-05-14 10:20] VITALS: BP 114/67; PULSE 67; RESP 16
== END 2024-05-14 10:25 | disposition home or self-care (01) ==
PROVIDERS: PCP Family Medicine Sports Medicine; Visit Provider Obstetrics & Gynecology Gynecology
PROC: 0U5B8ZZ Destruction of Endometrium, Via Natural or Artificial Opening Endoscopic (ICD-10-PCS; CPT 58563; principal; 2024-05-14 09:45)
DX: N72 Inflammatory disease of cervix uteri (principal); N32.81 Overactive bladder; F32.A Depression, unspecified; Z79.85 Long-term (current) use of injectable non-insulin antidiabetic drugs; Z98.890 Other specified postprocedural states; Z87.891 Personal history of nicotine dependence
CPT/HCPCS: 58558; 58579; 88305; A9270; J2003; J2250; J2270; J2704; J7120

== ENCOUNTER 2024-10-12 13:55 | Outpatient (CLI) | payer OTHER, SELFPAY ==
--- NOTE | ~2024-10-12 | US_ITS ---
EXAM: PELVIC ULTRASOUND HISTORY: Post Menopausal bleeding COMPARISON: 04/04/2023. FINDINGS: UTERUS: 8.3 x 4.9 x 5.9 cm. The uterus is anteverted and anteflexed. The endometrial complex measures 12 mm. Redemonstration of a rounded focus of mixed echogenicity measuring 17 x 16 x 15 mm, consistent with a n intramural fibroid, minimally increased in size from previous examination, likely secondary to diff ering techniques (transabdominal versus transvaginal). RIGHT OVARY: The right ovary is unremarkable in size measuring 1.5 x 2.4 x 2.0 cm. Dopplerable flow is identified. A single anechoic avascular focus is identified within the right ovary measuring 17 x 17 x 18 mm, rep resenting a simple cyst, for which no further follow-up is needed. LEFT OVARY: The left ovary is unremarkable in size measuring 2.6 x 1.3 x 1.9 cm Dopplerable flow is identified. A single anechoic avascular focus is identified within the left ovary measuring 16 x 9 x 13 mm, repre senting a simple cyst, for which no further follow-up is needed. No free fluid is identified within the pelvis. IMPRESSION: Fibroid uterus. Simple cysts within the bilateral ovaries, which do not meet size criteria for follow-up. Reviewed, dictated and finalized at location A.
== END 2024-10-12 13:56 | disposition home or self-care (01) ==
PROVIDERS: PCP Family Medicine Sports Medicine; Visit Provider Nurse Practitioner
DX: D25.9 Leiomyoma of uterus, unspecified (principal); N83.202 Unspecified ovarian cyst, left side; N83.201 Unspecified ovarian cyst, right side; N95.0 Postmenopausal bleeding
CPT/HCPCS: 76830